=== PATIENT | male | born 1970 | race Caucasian/White ===

== ENCOUNTER 2020-05-11 10:32 | Day surgery (SDC) | payer OTHER ==
--- NOTE | 2020-05-11 12:38 | NUR ---
05/11/20 Thang Larios 3-LEAD EKG REVIEWED WITH PHYSICIAN PRIOR TO START OF PROCEDURE.Patient to ENDO 2History, Chart, Medications and Allergies reviewed before start of procedure.MONITOR INTACT WITH CONTINUOUS PULSE OXIMETRY AND INTERMITTENT BP.O2 VIA N/C INTACT THROUGHOUT SEDATION/PROCEDURE.
--- NOTE | 2020-05-11 13:13 | NUR ---
PATIENT STATES MORE AWAKE THIS TIME THEN LAST TIME INFORMED OF ORDERS TO KEEP 2 HOURS NPO AND HAVE CXR @1340.
--- NOTE | 2020-05-11 13:59 | NUR ---
TO IMAGING AT 1345 BACK FROM IMAGING AT 1355 CALL FROM IMAGING TO REPORT NO PNEAUMO AT 1400. PATIENTS VSS AND CONVERSING WITH RN.
--- NOTE | 2020-05-11 14:29 | NUR ---
REPORT OFF TOE WANDA GARCIA RN
--- NOTE | 2020-05-11 14:45 | NUR ---
PT TOLERATED PO FLUIDS, VSS, DENIES PAIN, D/C INSTRUCTIONS GIVEN. PT DENIES QUESTIONS. ABLE TO DRESS INDEPENDANTLY. RIDE HOME IS , UPDATED D/C TIME WITH .
== END 2020-05-11 22:44 | disposition home or self-care (01) ==
LOC: ORSCMMR 10:32 → ORD 11:30 → ORSCMMR 22:44
PROVIDERS: Internal Medicine Pulmonary Disease
PROC: 0BB88ZX Excision of Left Upper Lobe Bronchus, Via Natural or Artificial Opening Endoscopic, Diagnostic (ICD-10-PCS; principal; 2020-05-11 11:30)
DX: C34.12 Malignant neoplasm of upper lobe, left bronchus or lung (principal); F17.210 Nicotine dependence, cigarettes, uncomplicated; E78.5 Hyperlipidemia, unspecified
CPT/HCPCS: 71045; 88305; 88342; J0171; J2001; J2250; J3010; J7120

== ENCOUNTER 2020-06-01 05:55 | Day surgery (SDC) | payer OTHER ==
[~2020-06-01] VITALS: Ht 185.4 cm; Wt 113.4 kg
--- NOTE | 2020-06-01 10:03 | NUR ---
Patient up to Ambulate independently. Gait steady. Discharge instructions reviewed with patient. Patient verbalizes understanding. Copy given to patient to take home. Discharged via wheelchair to private car for ride home.
--- NOTE | 2020-06-01 10:10 | NUR ---
CXR CLEAR PER JACQUES CALL
== END 2020-06-01 12:00 | disposition home or self-care (01) ==
LOC: ORSCMMR 05:55 → ORD 07:30 → ORSCMMR 12:00
PROVIDERS: Surgery
PROC: B5131ZA Fluoroscopy of Right Jugular Veins using Low Osmolar Contrast, Guidance (ICD-10-PCS; principal; 2020-06-01 07:30)
PROC: 05HM33Z Insertion of Infusion Device into Right Internal Jugular Vein, Percutaneous Approach (ICD-10-PCS; principal; 2020-06-01 07:30)
DX: C34.92 Malignant neoplasm of unspecified part of left bronchus or lung (principal); F17.210 Nicotine dependence, cigarettes, uncomplicated; Z79.899 Other long term (current) drug therapy
CPT/HCPCS: 77001; C1788; J0690; J1100; J1642; J2250; J2405; J2704; J3010; J7120

== ENCOUNTER 2022-05-11 11:46 | Emergency (ER) | payer OTHER ==
[~2022-05-11] VITALS: Ht 185.4 cm; Wt 115.7 kg
== END 2022-05-11 16:38 | disposition home or self-care (01) ==
LOC: ER 11:46
DX: R51.9 Headache, unspecified (principal); E03.9 Hypothyroidism, unspecified; F17.200 Nicotine dependence, unspecified, uncomplicated; Z88.0 Allergy status to penicillin; Z91.048 Other nonmedicinal substance allergy status
CPT/HCPCS: 70450